=== PATIENT | female | born 1990 | race Hispanic/Latino ===

== ENCOUNTER → 2023-06-01 08:13 | Outpatient (CLI) | payer OTHER, SELFPAY ==
--- NOTE | ~2023-06-01 | US_ITS ---
Pelvic ultrasound. Clinical History: Displacement IUD Technique: Realtime transabdominal and transvaginal scanning of the pelvis was performed. Color flow Doppler and Doppler spectral analysis were performed. Findings: The uterus is anteverted. The endometrial stripe has a thickness of 7 mm. IUD in satisfact ory position. There is an intramural fibroid near the fundus measuring 5.3 x 5.1 x 5.5 cm. Smaller fi broid measures 2 cm in diameter. The right ovary measures 2.8 x 1.1 x 2.8 cm. No significant right ovarian or adnexal mass is seen. The left ovary measures 3.6 x 3.7 x 2.0 cm. No significant left ovarian or adnexal mass is seen. There is no evidence of free fluid in the cul de sac. Impression: Uterine fibroids, as above, largest measuring 5.5 cm. IUD in satisfactory position. Reviewed, dictated and finalized at [facility]. ARD REPORTER Impression: Uterine fibroids, as above, largest measuring 5.5 cm. IUD in satisfactory position.
== END ==
PROVIDERS: PCP Advanced Practice Midwife; Visit Provider Advanced Practice Midwife
DX: T83.32XA Displacement of intrauterine contraceptive device, initial encounter (principal); D25.9 Leiomyoma of uterus, unspecified
CPT/HCPCS: 76856